=== PATIENT | male | born 1945 | race Caucasian/White ===

== ENCOUNTER 2018-06-10 16:37 | Emergency (ER) | payer OTHER ==
[~2018-06-10] VITALS: Ht 172.7 cm; Wt 74.8 kg
[2018-06-10] MEDS ORDERED: SIMVASTATIN1 GM (17:01)
[2018-06-10] MEDS ORDERED: TAMS0.4C (17:01)
[2018-06-10] MEDS ORDERED: GLIMEPIRIDE1 MG (17:01)
== END 2018-06-10 20:39 | disposition home or self-care (01) ==
LOC: ER 16:37
DX: R42 Dizziness and giddiness (principal)

== ENCOUNTER 2020-08-23 12:04 | Emergency (ER) | payer OTHER ==
[~2020-08-23] VITALS: Ht 172.7 cm; Wt 72.6 kg
[~2020-08-23 12:04] MED LIST: GLIMEPIRIDE1 MG; SIMVASTATIN1 GM; TAMS0.4C
[2020-08-23] MEDS ORDERED: RELAFEN DS1000 MG PO (18:49)
== END 2020-08-23 19:16 | disposition home or self-care (01) ==
LOC: ER 12:04
DX: R10.84 Generalized abdominal pain (principal); Z71.1 Person with feared health complaint in whom no diagnosis is made